=== PATIENT | male | born 1960 | race Caucasian/White ===

== ENCOUNTER 2022-09-09 06:13 | Day surgery (SDC) | payer OTHER, SELFPAY ==
[2022-09-09] VITALS (11 sets, daily range): BP systolic 126–166; BP diastolic 71–88; PULSE 64–79; RESP 12–16; TEMP 36.4–36.8; O2SAT 95–97; BMI 27.8
[2022-09-09] MEDS: LACTATED RINGERS 1000 ML 1,000 ML 100 ML IV (06:55)
--- NOTE | 2022-09-09 07:13 | W.ANESCHARGE ---
Anesthesia Charges Start Date/Time Anesthesia Start Date: 09/09/22 Anesthesia Start Time: 07:37 Stop Date/Time Anesthesia Stop Date: 09/09/22 Anesthesia Stop Time: 09:40
[2022-09-09] MEDS: CEFAZOLIN 2 GM INJ IVP (07:51)
[2022-09-09] MEDS: BUPIVACAINE 0.25 %/EPI 1:200K 30 ml 20 ML INJECTION (09:16)
[2022-09-09] MEDS: LIDOCAINE 1 % PF 30 ML 20 ML INJECTION (09:16)
[2022-09-09] MEDS: LACTATED RINGERS 1000 ML 1,000 ML 35 ML IV (09:35)
--- NOTE | 2022-09-09 09:40 | W.ANESCHARGE ---
Anesthesia Charges Start Date/Time Anesthesia Start Date: 09/09/22 Anesthesia Start Time: 07:37 Stop Date/Time Anesthesia Stop Date: 09/09/22 Anesthesia Stop Time: 09:40
--- NOTE | 2022-09-09 14:30 | P.GSOP_ITS ---
Operative Note Date of procedure: 09/09/22 Pre-op diagnosis: 1. Symptomatic left inguinal hernia. 2. Small right inguinal hernia. Post-op diagnosis: 1. Moderately-sized indirect left inguinal hernia. 2. Direct and indirect small right inguinal hernia. Type of Procedure: 1. Laparoscopic bilateral inguinal hernia repair with mesh. Indications: 62-year-old male was seen in clinic for evaluation of left inguinal hernia. Patient noticed a bulge in the left groin that was initially not painful. Patient noticed that the bulge was more prominent with strenuous activity and heavy lifting. Patient also noticed sensation of air moving in his groin bulge when he was reducing it. Patient stopped doing heavy lifting and exercises. He stated that during his previous annual exams he was noted to have a small inguinal hernia that was not as prominent. On clinical exam patient had a moderately-sized reducible left inguinal hernia and a small right inguinal hernia. Given patient's history and his physical exam, laparoscopic bilateral inguinal hernia repair was recommended. The procedure was discussed in detail. The risks associated procedure including infection, bleeding, injury to preperitoneal organs, and hernia recurrence were all discussed with the patient and he agreed to proceed. Procedure Description: After discussing the risks and benefits of the procedure, the patient signed informed consent.? The operative site was marked and the patient was brought to the operating room and placed on the operating table in supine position.? Care was taken to pad the patient's pressure points.?? The patient was then intubated by anesthesia.?? The operative site was then prepped and draped in the usual sterile fashion.? A time-out was then performed. An infraumbilical skin incision was made with a scalpel and subcutaneous tissues were dissected with electrocautery. Anterior sheath was incised with electrocautery and rectus muscle was retracted laterally. A 12 mm spacemaker dissector system was introduced into the incision and advanced over the posterior sheath. Preperitoneal space was dissected with manually insufflating air under direct visualization. Once the tissues were dissected, the balloon was deflated and removed.? A laparoscopic balloon was placed into preperitoneal space and balloon was inflated. Preperitoneal space was insufflated with air. No bleeding was identified upon examination of preperitoneal space. We then placed two 5 mm ports suprapubically under direct visualization. ? The preperitoneal tissues were bluntly dissected with graspers.? The pubic bone was identified and? cleared from preperitoneal tissue.??I first started on left side. Inferior epigastrics on left?side were retracted towards the abdominal wall.?? Spermatic cord? was identified and dissected circumferentially.? This was done bluntly. A moderately-sized indirect hernia was noted. This was mobilized off the spermatic cord bluntly. When the hernia sac was separate from the spermatic cord, I was able to bluntly reduce it from the inguinal canal. A small cord lipoma was also noted and reduced from the inguinal canal. We then directed our attention to the right side. The right inferior epigastrics were her retracted towards the abdominal wall. Preperitoneal tissues were divided bluntly on the right side. The right spermatic cord was identified and a small indirect inguinal hernia was noted. The peritoneal edge of the inguinal hernia was retracted cephalad bluntly. A small direct space was noted on the right as well. When adequate space was developed for mesh placement, a right sided Parietex? mesh was used and positioned around the spermatic cord. The mesh was tacked medially and laterally with?tacks.? A left-sided mesh was then Additional local anesthetic was injected directly into pre-peritoneal space. ? The space was deflated under direct visualization and mesh appeared to be still lying in a good position. The ports were then removed. Anterior sheath was then closed with a running 0-0 vicryl suture. Skin was closed with 4-0 monocryl using subcuticular stitch. Steri strips were applied over the laparoscopic?incisions. ? All counts were correct at the end of the case. Patient tolerated the procedure well and was transferred to PACU without any co mplications. Sterile dressings were then applied. ? The patient was then woken and transported to the recovery area in stable condition. ? The patient tolerated the procedure well. Findings: Small right indirect and direct hernia and moderately sized left indirect hernia with cord lipoma. Implants: Parietex mesh bilaterally Anesthesia: GETA Surgeon: Thao Montaño MD Estimated blood loss (mL): 5 Condition: stable Disposition: PACU
== END 2022-09-09 11:07 | disposition home or self-care (01) ==
PROVIDERS: PCP Family Medicine; Visit Provider Surgery
PROC: (CPT 49650; principal; 2022-09-09 07:30)
DX: K40.20 Bilateral inguinal hernia, without obstruction or gangrene, not specified as recurrent (principal)
CPT/HCPCS: 49650; 00832; 00860; C1781; J0330; J0690; J1100; J1170; J2001; J2250; J2405; J2704; J3010; J3490; J7120